=== PATIENT | female | born 1970 | race African-American/Black ===

== ENCOUNTER 2016-11-29 13:21 | Emergency (ER) | payer MEDICARE, OTHER ==
[~2016-11-29] VITALS: Ht 165.1 cm; Wt 86.4 kg
[~2016-11-29 13:21] MED LIST: CLARITIN; NASONEX; SERT50TA12 PO
[2016-11-29] MEDS ORDERED: ACET1TAB12 PO (14:33)
[2016-11-29] MEDS ORDERED: NAPR-58 PO (14:33)
[2016-11-29] MEDS ORDERED: IBUP-2070 PO (14:33)
[2016-11-29] MEDS ORDERED: GABA-533 PO (14:33)
[2016-11-29] MEDS ORDERED: IBUPROFEN 600 MG TABLET PO ONE (15:15)
[2016-11-29 17:00] VITALS: BP 130/89
== END 2016-11-29 17:37 | disposition home or self-care (01) ==
LOC: EMS 13:23
DX: M25.552 Pain in left hip (principal); J45.909 Unspecified asthma, uncomplicated; Z88.0 Allergy status to penicillin; Z88.1 Allergy status to other antibiotic agents; V48.5XXA Car driver injured in noncollision transport accident in traffic accident, initial encounter; Y93.89 Activity, other specified; Y92.89 Other specified places as the place of occurrence of the external cause; Y99.8 Other external cause status
CPT/HCPCS: 73503; 73552; 99284

== ENCOUNTER 2018-12-30 16:21 | Emergency (ER) | payer OTHER ==
[~2018-12-30] VITALS: Ht 165.1 cm; Wt 86.4 kg
[~2018-12-30 16:21] MED LIST changes: +ACET1TAB12 PO; -CLARITIN; +GABA-533 PO; +IBUP-2070 PO; +NAPR-58 PO; -NASONEX; -SERT50TA12 PO
[2018-12-30 17:54] VITALS: BP 148/96
[2018-12-30] MEDS ORDERED: ACYCLOVIR 200 MG CAPSULE PO ONE (18:15)
[2018-12-30] MEDS ORDERED: IBUPROFEN 400 MG TABLET PO ONE (18:15)
== END 2018-12-30 18:54 | disposition home or self-care (01) ==
LOC: EMS 16:23
DX: B02.9 Zoster without complications (principal); J45.909 Unspecified asthma, uncomplicated; Z88.0 Allergy status to penicillin; Z88.1 Allergy status to other antibiotic agents; Z79.899 Other long term (current) drug therapy

== ENCOUNTER 2021-06-13 09:30 | Emergency (ER) | payer OTHER ==
[~2021-06-13] VITALS: Ht 165.1 cm; Wt 88.6 kg
[~2021-06-13 09:30] MED LIST changes: +ACET-2080 PO; -ACET1TAB12 PO; +GABA-1201 PO; -GABA-533 PO; +NAPR-1025 PO; -NAPR-58 PO
[2021-06-13] MEDS ORDERED: DEXAMETHASONE 4 MG TABLET PO ONE (11:00)
[2021-06-13] MEDS ORDERED: MAALOX/LIDOCAINE/NYSTATIN SUSP 5 ML ORAL.SYG MM ONE (11:00)
[2021-06-13 11:24] LABS: COVID AG,FIA SOURCE NASAL SWAB
[2021-06-13 13:16] VITALS: BP 120/80
== END 2021-06-13 13:16 | disposition home or self-care (01) ==
LOC: EMS 09:41
DX: J02.9 Acute pharyngitis, unspecified (principal); J45.909 Unspecified asthma, uncomplicated; Z20.822 Contact with and (suspected) exposure to COVID-19; Z88.0 Allergy status to penicillin; Z88.8 Allergy status to other drugs, medicaments and biological substances
CPT/HCPCS: 87426; 99283; J8540

== ENCOUNTER 2023-11-19 08:46 | Emergency (ER) | payer OTHER ==
[~2023-11-19] VITALS: Ht 167.6 cm; Wt 81.8 kg
[~2023-11-19 08:46] MED LIST changes: +IBUP-1492 PO; -IBUP-2070 PO
[2023-11-19 08:58] VITALS: BP 130/79; PULSE 88; RESP 16; TEMP 97.9
[2023-11-19] MEDS ORDERED: POTA8CAP20 PO (09:07)
[2023-11-19] MEDS ORDERED: ALBU18HF12 IH (09:07)
[2023-11-19] MEDS ORDERED: HYDR50TA PO (09:07)
[2023-11-19] MEDS ORDERED: IBUP-1554 PO (11:03)
[2023-11-19] MEDS: IBUPROFEN 600 MG TABLET PO ONE (11:21)
== END 2023-11-19 11:55 | disposition home or self-care (01) ==
LOC: EMS 08:47
DX: S63.615A Unspecified sprain of left ring finger, initial encounter (principal); J45.909 Unspecified asthma, uncomplicated; I10 Essential (primary) hypertension; Z98.890 Other specified postprocedural states; Z88.0 Allergy status to penicillin; Z91.013 Allergy to seafood; X58.XXXA Exposure to other specified factors, initial encounter; Y93.89 Activity, other specified; Y92.89 Other specified places as the place of occurrence of the external cause; Y99.8 Other external cause status
CPT/HCPCS: 29280; 99283